=== PATIENT | female | born 1945 | race Caucasian/White ===

== ENCOUNTER 2016-07-20 08:32 | Emergency (ER) | payer OTHER, MEDICAID ==
[~2016-07-20] VITALS: Ht 167.6 cm; Wt 99.8 kg
[~2016-07-20 08:32] MED LIST: BELL30TI2; METF-312; METO50TA7; OMEP20TA44; RAMI5CAP40; VERA1CAP
[2016-07-20] MEDS ORDERED: SODIUM CHLORIDE 0.9% 1,000 ML IV ONE (10:13)
[2016-07-20] MEDS ORDERED: diphenhdrAMINE HCL 50 MG/1 ML VL IV ONE (10:15)
[2016-07-20] MEDS ORDERED: DEXAMETHASONE SOD PHOS 4 MG/1ML SDV INJ IV ONE (10:15)
[2016-07-20 10:42] LABS: Basophils # (auto) 0 uL; Basophils % (auto) 0.6 % (0.0-2.0); DEFINITIVE VIEW TRANSMISSION; Eosinophils # (auto) 0.1 uL; Eosinophils % (auto) 0.7 % (0.0-7.0); Hemoglobin 11.7 g/dL (12.2-16.2); Lymphocytes # (auto) 1.3 uL; Lymphocytes % (auto) 19.5 % (10.0-50.0); Mean Corpuscular Hemoglobin 26.8 pg (28.0-32.0); Mean Corpuscular Hgb Conc. 32.5 g/dL (32.0-36.0); Mean Corpuscular Volume 82.5 fL (80.0-100.0); Mean Platelet Volume 7.2 fL (7.4-10.4); Monocytes # (auto) 0.6 uL; Monocytes % (auto) 8.1 % (0.0-12.0); Neutrophils # (auto) 4.9 uL; Neutrophils % (auto) 71.1 % (37.0-80.0); Platelet Count (auto) 284 10^3/uL (140-450); White Blood Cell 6.9 10^3/uL (4.4-10.8)
[2016-07-20 10:54] LABS: Urine RBC None Seen /hpf (0 - 4)
[2016-07-20 10:57] LABS: Albumin 3.5 g/dL (3.4-5.0); BUN/Creatinine Ratio 12.3; Calcium 8.6 mg/dL (8.5-10.1); Magnesium 1.1 mg/dL (1.6-2.6); Potassium 4.1 mmol/L (3.5-5.1)
[2016-07-20 11:00] LABS: Bilirubin, Total 0.4 mg/dL (0.2-1.0); Total Protein 6.9 g/dL (6.4-8.2)
[2016-07-20 11:22] LABS: Urine Bilirubin Negative (Negative); Urine Blood Negative /uL (Negative); Urine Color Yellow (Yellow); Urine Glucose Normal (Normal); Urine Ketone Negative (Negative); Urine Nitrite Negative (Negative); Urine Squamous Epithelial Cell FEW /hpf (<5); Urine Urobilinogen Normal (Negative); Urine pH 6.5 (5.0-8.0)
[2016-07-20] MEDS: MAGNESIUM SULFATE 1GM/100ML 100 ML IV SCH ×3 (13:15→16:44)
[2016-07-20] MEDS ORDERED: ACETAMINOPHEN 500 MG TAB PO ONE (16:30)
[2016-07-20 17:30] VITALS: BP 134/74
== END 2016-07-20 18:25 | disposition home or self-care (01) ==
LOC: EDBD 08:32 → ER 08:32
DX: T78.40XA Allergy, unspecified, initial encounter (principal); R22.0 Localized swelling, mass and lump, head; N39.0 Urinary tract infection, site not specified; E83.42 Hypomagnesemia; E66.01 Morbid (severe) obesity due to excess calories; Z68.35 Body mass index [BMI] 35.0-35.9, adult; Z88.8 Allergy status to other drugs, medicaments and biological substances; Z88.6 Allergy status to analgesic agent; K21.9 Gastro-esophageal reflux disease without esophagitis; I25.2 Old myocardial infarction; E11.9 Type 2 diabetes mellitus without complications; I10 Essential (primary) hypertension; E78.5 Hyperlipidemia, unspecified; F31.9 Bipolar disorder, unspecified; J44.9 Chronic obstructive pulmonary disease, unspecified
CPT/HCPCS: 36415; 80053; 81001; 82962; 83735; 84443; 85025; 96361; 96365; 96366; 96375; 99285; J1100; J1200; J3475; J7030

== ENCOUNTER 2020-05-26 18:48 | Emergency (ER) | payer OTHER, MEDICAID ==
[~2020-05-26] VITALS: Ht 167.6 cm; Wt 161.5 kg
[~2020-05-26 18:48] MED LIST changes: -METF-312; +METF-370; +METO-6; -METO50TA7
[2020-05-26] MEDS ORDERED: methylPREDNISolone SOD SUCC 125 MG/2 ML VL IV ONE (19:00)
[2020-05-26] MEDS ORDERED: diphenhdrAMINE HCL 50 MG/1 ML VL ONE (19:10)
[2020-05-26] MEDS ORDERED: methylPREDNISolone SOD SUCC 125 MG/2 ML VL ONE (19:10)
[2020-05-27] MEDS ORDERED: LORazepam 0.5 MG TAB PO ONE (03:00)
[2020-05-27 04:20] VITALS: BP 126/75
== END 2020-05-27 05:38 | disposition home or self-care (01) ==
LOC: EDBD 18:48 → ER 18:48
DX: T78.40XA Allergy, unspecified, initial encounter (principal); E11.9 Type 2 diabetes mellitus without complications; K21.9 Gastro-esophageal reflux disease without esophagitis; I10 Essential (primary) hypertension; I25.2 Old myocardial infarction; M54.2 Cervicalgia; Z88.6 Allergy status to analgesic agent; Z88.8 Allergy status to other drugs, medicaments and biological substances; X58.XXXA Exposure to other specified factors, initial encounter
CPT/HCPCS: 70490; 93005; 96374; 99285; J1200; J2930

== ENCOUNTER 2022-03-17 09:39 | Inpatient (IN) | payer OTHER, MEDICAID ==
[~2022-03-17] VITALS: Ht 167.6 cm; Wt 125.0 kg
[2022-03-17] MEDS ORDERED: DexAMETHasone SOD PHOS 10MG/1ML VIAL INJ IM ONE (10:15)
[2022-03-17 11:12] LABS: Basophils # (auto) 0 10 ^3/uL (0-0.2); Basophils % (auto) 0.3 % (0.0-2.0); Eosinophils # (auto) 0 10 ^3/uL (0-0.8); Eosinophils % (auto) 0.6 % (0.0-7.0); Hematocrit 36.8 % (36.0-46.0); Hemoglobin 12.4 g/dL (12.2-16.2); Lymphocytes # (auto) 0.6 10 ^3/uL (0.4-5.4); Lymphocytes % (auto) 13.4 % (10.0-50.0); Mean Corpuscular Hemoglobin 28.1 pg (28.0-32.0); Mean Corpuscular Hgb Conc. 33.8 g/dL (32.0-36.0); Mean Corpuscular Volume 83.3 fL (80.0-100.0); Monocytes # (auto) 0.5 10 ^3/uL (0-1.3); Monocytes % (auto) 9.6 % (0.0-12.0); Neutrophils # (auto) 3.6 10 ^3/uL (1.6-8.6); Neutrophils % (auto) 76.1 % (37.0-80.0); Nucleated Red Blood Cells % 0.1 %; Red Blood Cells 4.42 10^6/uL (4.0-5.20); Red Cell Distribution Width 16.1 % (11.8-14.3); White Blood Cell 4.8 10^3/uL (4.4-10.8)
[2022-03-17 11:40] LABS: Albumin 3.7 g/dL (3.4-5.0); Magnesium 1.5 mg/dL (1.6-2.6); Potassium 4.8 mmol/L (3.5-5.1)
[2022-03-17] MEDS ORDERED: FAMOTIDINE (10MG/ML) 2ML VL IV ONE ×3 (11:41→12:00)
[2022-03-17] MEDS ORDERED: EPINEPHrine HCL 1 MG/1 ML AMP ONE (11:41)
[2022-03-17 11:43] LABS: BUN/Creatinine Ratio 17.6; Bilirubin, Total 0.5 mg/dL (0.2-1.0); Total Protein 6.6 g/dL (6.4-8.2)
[2022-03-17] MEDS ORDERED: diphenhdrAMINE HCL 50 MG/1 ML VL ONE (11:45)
[2022-03-17] MEDS ORDERED: EPINEPHrine HCL 1 MG/1 ML AMP IM ONE (11:45)
[2022-03-17] MEDS ORDERED: IPRATROPIUM BROM 0.5 MG/2.5ML INH SOL NEB ONE (12:00)
[2022-03-17] MEDS ORDERED: diphenhdrAMINE HCL 50 MG/1 ML VL IV ONE (12:00)
[2022-03-17] MEDS ORDERED: ALBUTEROL SULF 2.5 MG/0.5ML(0.5%) NEB SOLN NEB ONE (12:00)
[2022-03-17] MEDS: MAGNESIUM SULFATE 1GM/100ML 100 ML IV SCH ×2 (12:15→13:22)
[2022-03-17] MEDS ORDERED: ALBUTEROL MEDNEB 2.5 mg/3ml NEB ONE ×2 (12:17→18:12)
[2022-03-17] MEDS ORDERED: ALBUTEROL SULF 2.5 MG/0.5ML(0.5%) NEB SOLN NEB PRN (13:45)
[2022-03-17] MEDS ORDERED: IPRATROPIUM BROM 0.5 MG/2.5ML INH SOL NEB PRN (13:45)
[2022-03-17] MEDS ORDERED: NITROGLYCERIN 0.4 MG SL TAB SL PRN (13:45)
[2022-03-17] MEDS ORDERED: diphenhdrAMINE HCL 50 MG/1 ML VL IV PRN (13:45)
[2022-03-17] MEDS ORDERED: hydrALAZINE HCL 20 MG/ML VL IV PRN (13:45)
[2022-03-17] MEDS ORDERED: PANTOPRAZOLE 40 MG/10 ML VIAL INJ IV ONE (13:45)
[2022-03-17 14:25] VITALS: BP 122/53
[2022-03-17] MEDS ORDERED: DEXTROSE (50%) 50ML SYRG IV PRN (15:00)
[2022-03-17 15:54] LABS: INR 1.02 (0.9-1.15); Partial Thromboplastin Time 30.2 sec (24.6-33.4)
[2022-03-17] MEDS ORDERED: ACETAMINOPHEN 500 MG TAB PO ONE ×2 (17:44→17:45)
[2022-03-17] MEDS: ALBUTEROL SULF 2.5 MG/0.5ML(0.5%) NEB SOLN NEB SCH (18:00)
[2022-03-17] MEDS: ACCU-CHEK COMFORT CURVE STRIP VI SCH ×2 (18:15→22:40)
[2022-03-17] MEDS ORDERED: InsuLIN REG 1unit/0.01ml Soln (100units/ml) ONE (18:18)
[2022-03-17] MEDS: InsuLIN REG 1unit/0.01ml Soln (100units/ml) SC SCH ×2 (18:20→22:45)
[2022-03-17] MEDS: IPRATROPIUM BROM 0.5 MG/2.5ML INH SOL NEB SCH (19:55)
[2022-03-17] MEDS: FAMOTIDINE (10MG/ML) 2ML VL IV SCH (22:43)
[2022-03-17] MEDS: diphenhdrAMINE HCL 50 MG/1 ML VL IV SCH (22:44)
[2022-03-17 22:59] LABS: Urine Bacteria NONE SEEN /hpf (None Seen); Urine Blood Negative /uL (Negative); Urine Mucus FEW (None Seen); Urine Specific Gravity 1.014 (1.001-1.035); Urine WBC 2 /hpf (0 - 5)
[2022-03-18] MEDS ORDERED: ACETAMINOPHEN 325 MG TAB PO PRN (01:45)
[2022-03-18] MEDS ORDERED: IBUPROFEN 600 MG TAB PO PRN (01:45)
[2022-03-18] MEDS: IPRATROPIUM BROM 0.5 MG/2.5ML INH SOL NEB SCH ×3 (06:23→18:50)
[2022-03-18] MEDS: ALBUTEROL SULF 2.5 MG/0.5ML(0.5%) NEB SOLN NEB SCH ×3 (06:23→18:50)
[2022-03-18 06:30] LABS: Basophils # (auto) 0 10 ^3/uL (0-0.2); Basophils % (auto) 0.1 % (0.0-2.0); Eosinophils # (auto) 0 10 ^3/uL (0-0.8); Hematocrit 32.9 % (36.0-46.0); Hemoglobin 11.3 g/dL (12.2-16.2); Lymphocytes # (auto) 0.6 10 ^3/uL (0.4-5.4); Lymphocytes % (auto) 12.4 % (10.0-50.0); Mean Corpuscular Hemoglobin 28.8 pg (28.0-32.0); Mean Corpuscular Hgb Conc. 34.5 g/dL (32.0-36.0); Mean Corpuscular Volume 83.5 fL (80.0-100.0); Monocytes # (auto) 0.5 10 ^3/uL (0-1.3); Monocytes % (auto) 9.5 % (0.0-12.0); Neutrophils # (auto) 3.7 10 ^3/uL (1.6-8.6); Nucleated Red Blood Cells % 0.1 %; Red Blood Cells 3.94 10^6/uL (4.0-5.20); Red Cell Distribution Width 16.4 % (11.8-14.3); White Blood Cell 4.8 10^3/uL (4.4-10.8)
[2022-03-18] MEDS: ACCU-CHEK COMFORT CURVE STRIP VI SCH ×3 (06:34→17:47)
[2022-03-18 06:40] LABS: Albumin 3.8 g/dL (3.4-5.0); Potassium 4.8 mmol/L (3.5-5.1)
[2022-03-18] MEDS: InsuLIN REG 1unit/0.01ml Soln (100units/ml) SC SCH ×3 (06:40→17:59)
[2022-03-18 06:45] LABS: BUN/Creatinine Ratio 21.7; Bilirubin, Total 0.5 mg/dL (0.2-1.0); Total Protein 6.4 g/dL (6.4-8.2)
[2022-03-18 09:01] LABS: Hepatitis B Surface Antibody Negative (Negative)
[2022-03-18 09:27] LABS: Hepatitis A Total Antibody Positive (Negative)
[2022-03-18] MEDS ORDERED: PANTOPRAZOLE 40 MG/10 ML VIAL INJ IV SCH (10:00)
[2022-03-18] MEDS ORDERED: DexAMETHasone SOD PHOS 10MG/1ML VIAL INJ IV SCH (10:00)
[2022-03-18] MEDS ORDERED: ENOXAPARIN SOD 40 MG/0.4 ML SYRINGE SC SCH (10:00)
[2022-03-18] MEDS ORDERED: METOPROLOL SUCCINATE XL 50 MG TAB PO SCH (10:00)
[2022-03-18] MEDS: FAMOTIDINE (10MG/ML) 2ML VL IV SCH (10:55)
[2022-03-18] MEDS: diphenhdrAMINE HCL 50 MG/1 ML VL IV SCH (10:56)
[2022-03-18] MEDS ORDERED: ALBUTEROL MEDNEB 2.5 mg/3ml NEB ONE ×2 (11:46→18:24)
[2022-03-18 15:07] LABS: Hepatitis C Antibody Negative (Negative)
[2022-03-18] MEDS ORDERED: OMEP20TA44 PO (17:11)
[2022-03-18] MEDS ORDERED: RAMI5CAP40 PO (17:11)
[2022-03-18] MEDS ORDERED: METF-370 PO (17:11)
[2022-03-18] MEDS ORDERED: POTA10TA32 PO (17:11)
[2022-03-18] MEDS ORDERED: METO-6 PO (17:11)
[2022-03-18] MEDS ORDERED: PRAV20TA3 PO (17:11)
[2022-03-18] MEDS ORDERED: VERA1CAP PO (17:11)
[2022-03-18 20:30] VITALS: BP 132/78
== END 2022-03-18 20:32 | disposition home or self-care (01) | DRG 916 ==
LOC: EDBD 09:39 → ER 09:39 → OVERFLOW 13:46
PROVIDERS: ADMIT Registered Nurse; ATTEND Internal Medicine
DX: T78.3XXA Angioneurotic edema, initial encounter (principal); B15.9 Hepatitis A without hepatic coma; Z68.41 Body mass index [BMI] 40.0-44.9, adult; E11.9 Type 2 diabetes mellitus without complications; E66.01 Morbid (severe) obesity due to excess calories; I10 Essential (primary) hypertension; K21.9 Gastro-esophageal reflux disease without esophagitis; Z20.822 Contact with and (suspected) exposure to COVID-19; E78.5 Hyperlipidemia, unspecified; Z88.7 Allergy status to serum and vaccine; Z82.5 Family history of asthma and other chronic lower respiratory diseases; Z82.3 Family history of stroke; I25.2 Old myocardial infarction
CPT/HCPCS: 36415; 71045; 76705; 80053; 81001; 82962; 83735; 83880; 85025; 85610; 85730; 86704; 86706; 86708; 86803; 87340; 87426; 94640; 96365; 96372; 96375; 96376; 99291; C9113; G0378; J0171; J1100; J1815; J3490